=== PATIENT | female | born 1970 | race African-American/Black ===

== ENCOUNTER 2016-10-25 19:49 | Emergency (ER) | payer OTHER ==
[~2016-10-25] VITALS: Ht 182.9 cm; Wt 147.1 kg
[~2016-10-25 19:49] MED LIST: ADULT LOW DOSE81 M1 PO; ASPIR 8181 M1 PO; ASPIR-TRIN325 M1 PO; CIPRO500 MG PO; CIPROFLOXACIN500 M1 PO; CITALOPRAM HBR40 MG PO; ENDOCET 5-3251 EACH PO; FEROSUL325 MG PO; FLEXERIL10 MG PO; GLUCOPHAGE500 MG PO; IBUPROFEN800 MG PO; IRON325 MG PO; Levothroid,Synthroid PO; MEGACE20 MG PO; MEGACE40 MG PO; MOTRIN800 MG PO; PERCOCET 5/31 TABLET PO; RANITIDINE HCL150 MG PO; SYNTHROID200 MCG PO; ULTRAM50 MG PO; ZANTAC150 MG PO; ZESTORETIC 20-1 EAC1 PO; Zestoretic,Prinzide PO
[2016-10-25 21:04] LABS: INFLUENZA A VIRAL ANTIGEN POSITIVE; INFLUENZA B VIRAL ANTIGEN NEGATIVE
[2016-10-25 21:47] VITALS: BP 136/80
== END 2016-10-25 21:49 | disposition home or self-care (01) ==
LOC: RME 19:49 → EME 19:49 → RME 21:49
DX: J10.1 Influenza due to other identified influenza virus with other respiratory manifestations (principal); R50.9 Fever, unspecified; G89.29 Other chronic pain; E11.9 Type 2 diabetes mellitus without complications; I10 Essential (primary) hypertension; K21.9 Gastro-esophageal reflux disease without esophagitis
CPT/HCPCS: 71020; 87502; 94640; 99281; 99284

== ENCOUNTER 2017-02-25 21:41 | Emergency (ER) | payer OTHER ==
[~2017-02-25] VITALS: Ht 175.3 cm; Wt 152.4 kg
[2017-02-25 22:09] LABS: POINT-OF-CARE METER ID UU13113778
[2017-02-25 23:06] LABS: ADD MIUA? YES; BILIRUBIN NEGATIVE; BLOOD NEGATIVE; COLOR STRAW ((YELLOW)); GLUCOSE (STRIP) NEGATIVE; KETONES NEGATIVE; LEUKOCYTES MODERATE; NITRITE NEGATIVE; PROTEIN (STRIP) NEGATIVE; SPECIFIC GRAVITY 1.015 (1.000-1.030); UROBILINOGEN 0.2 MG/DL (0.2-1.0)
[2017-02-25 23:22] LABS: BACTERIA RARE /HPF; EPITHELIAL CELLS 1+ /HPF; MUCUS TRACE /LPF; RED BLOOD CELLS 0-5 /HPF (0-5); UCUL ADDED? NO; WHITE BLOOD CELLS 0-5 /HPF (0-5)
[2017-02-26] MEDS ORDERED: KEFLEX500 MG PO (00:58)
[2017-02-26 01:06] VITALS: BP 117/72
[2017-02-27 13:21] LABS: CHLAMYDIA TRACHOMATIS NEGATIVE; NEISSERIA GONORRHOEAE NEGATIVE
== END 2017-02-26 01:07 | disposition home or self-care (01) ==
LOC: EME 21:41 → RME 21:41
PROVIDERS: Physician Assistant Medical
DX: N39.0 Urinary tract infection, site not specified (principal); N89.8 Other specified noninflammatory disorders of vagina; E11.9 Type 2 diabetes mellitus without complications; I10 Essential (primary) hypertension; K21.9 Gastro-esophageal reflux disease without esophagitis; Z90.710 Acquired absence of both cervix and uterus
CPT/HCPCS: 81003; 82948; 87491; 87591; 99281; 99283

== ENCOUNTER 2017-10-29 19:18 | Emergency (ER) | payer OTHER ==
[~2017-10-29] VITALS: Ht 175.3 cm; Wt 156.0 kg
[~2017-10-29 19:18] MED LIST changes: +KEFLEX500 MG PO
[2017-10-29 21:07] VITALS: BP 99/67
== END 2017-10-29 21:08 | disposition home or self-care (01) ==
LOC: EME 19:18
DX: S46.212A Strain of muscle, fascia and tendon of other parts of biceps, left arm, initial encounter (principal); X50.0XXA Overexertion from strenuous movement or load, initial encounter; Y93.89 Activity, other specified; Y99.0 Civilian activity done for income or pay; I10 Essential (primary) hypertension; E11.9 Type 2 diabetes mellitus without complications; K21.9 Gastro-esophageal reflux disease without esophagitis; F32.9 Major depressive disorder, single episode, unspecified; Z79.84 Long term (current) use of oral hypoglycemic drugs
CPT/HCPCS: 93005; 99281; 99284

== ENCOUNTER 2018-04-08 22:46 | Emergency (ER) | payer OTHER ==
[~2018-04-08] VITALS: Ht 180.3 cm; Wt 156.4 kg
[2018-04-09] MEDS ORDERED: ZITHROMAX Z-PA250 MG PO (00:06)
[2018-04-09 00:17] VITALS: BP 115/68
== END 2018-04-09 00:18 | disposition home or self-care (01) ==
LOC: EME 22:46
DX: H10.33 Unspecified acute conjunctivitis, bilateral (principal); J02.9 Acute pharyngitis, unspecified
CPT/HCPCS: 87651 90; 99281; 99284

== ENCOUNTER 2018-05-15 04:33 | Emergency (ER) | payer OTHER ==
[~2018-05-15] VITALS: Ht 175.3 cm; Wt 155.8 kg
[~2018-05-15 04:33] MED LIST changes: +ZITHROMAX Z-PA250 MG PO
[2018-05-15 04:35] VITALS: BP 141/74
[2018-05-15] MEDS ORDERED: FLEXERIL10 MG PO (05:03)
[2018-05-15] MEDS ORDERED: ULTRAM50 MG PO (05:03)
[2018-05-15] MEDS ORDERED: MOTRIN800 MG PO (05:03)
== END 2018-05-15 05:20 | disposition home or self-care (01) ==
LOC: EME 04:33
DX: S39.012A Strain of muscle, fascia and tendon of lower back, initial encounter (principal); M54.41 Lumbago with sciatica, right side; S46.212A Strain of muscle, fascia and tendon of other parts of biceps, left arm, initial encounter
CPT/HCPCS: 99281; 99284; J1100